=== PATIENT | female | born 1960 | race Two or more races ===

== ENCOUNTER 2023-10-05 08:22 | Inpatient (IN) | payer OTHER ==
[~2023-10-05] VITALS: Ht 172.7 cm; Wt 81.6 kg
[2023-10-05] MEDS ORDERED: LANTUS SOL100 UNIT/1 (08:57)
[2023-10-05] MEDS ORDERED: TENORMIN50 M1 PO (08:59)
[2023-10-05] MEDS ORDERED: LIPITOR80 MG PO (08:59)
[2023-10-05] MEDS ORDERED: INSULIN SYRING1 EA29 SUBCUTANEO (08:59)
[2023-10-05] MEDS ORDERED: NORVASC10 MG PO (09:00)
[2023-10-05] MEDS ORDERED: ZESTRIL30 MG PO (09:00)
[2023-10-05] MEDS ORDERED: CYMBALTA60 MG PO (09:01)
[2023-10-05] MEDS ORDERED: RESTORIL15 M1 PO (09:01)
[2023-10-05] MEDS ORDERED: DOXEPIN HCL150 MG PO (09:02)
[2023-10-05 09:16] LABS: HEMATOCRIT 39.6 % (36.0-45.00); HEMOGLOBIN 13.2 g/dL (12.0-15.00); MEAN CELL VOLUME 87.1 fL (80.00-100.00); MEAN CORPUSCULAR HEMOGLOBIN 29.1 pg (27.00-32.0); MEAN CORPUSCULAR HGB CONC 33.4 g/dl (32.0-36.0); PLATELET COUNT 348 K/uL (150-450); RED BLOOD COUNT 4.55 M/uL (4.00-6.00); RED CELL DISTRIBUTION WIDTH 13.9 % (11.5-14.5)
[2023-10-05 09:27] LABS: URINE APPEARANCE Clear; URINE BILIRRUBIN Negative (NEGATIVE); URINE BLOOD Negative; URINE COLOR Yellow; URINE GLUCOSE Negative (NEGATIVE); URINE LEUKOCYTE Trace; URINE NITRATE Negative; URINE PROTEIN Negative (NEGATIVE); URINE UROBILINOGEN 0.2 E.U./dl
[2023-10-05 09:34] LABS: URINE BACTERIA 1465.2 uL (0.0-1933); URINE EPITHELIAL CELLS 44.3 uL (0.0-38.8); URINE RBC 4.3 uL (0.0-20.8); URINE WBC 7.2 uL (0.0-23.2)
[2023-10-05 09:39] LABS: INR 0.98; PARTIAL THROMBOPLASTIN TIME 26.5 SECONDS (22.0-34.0); PROTHROMBIN TIME 10.3 SECONDS (9.0-11.5)
[2023-10-05 09:45] LABS: ALBUMIN 4.1 gm/dL (3.4-5.0); BILIRUBIN TOTAL 0.34 mg/dL (0.3-1.2); CALCIUM 9.5 mg/dL (8.5-10.1); CREATININE SERUM 0.68 mg/dL (0.55-1.02); GFR 87.11; GLOBULINA 3.6 G/DL (2.4-3.5); POTASSIUM 4.73 mEq/L (3.5-5.1); TOTAL PROTEIN 7.7 gm/dL (6.4-8.2)
[2023-10-12 06:17] LABS: HEMOGLOBIN 12.8 g/dL (12.0-15.00); MEAN CELL VOLUME 86.8 fL (80.00-100.00); MEAN CORPUSCULAR HEMOGLOBIN 28.4 pg (27.00-32.0); MEAN CORPUSCULAR HGB CONC 32.8 g/dl (32.0-36.0); PLATELET COUNT 283 K/uL (150-450); RED BLOOD COUNT 4.49 M/uL (4.00-6.00); RED CELL DISTRIBUTION WIDTH 13.4 % (11.5-14.5)
== END 2023-10-14 18:35 | disposition home or self-care (01) | DRG 743 ==
LOC: O/R 10-11 15:22 → OB/GYN 10-11 15:22 → CIR.AMB 10-12 08:17 → EDSTATUS 10-12 08:20 → OB/GYN 10-12 08:21
PROVIDERS: ADMIT Obstetrics & Gynecology Obstetrics; ATTEND Obstetrics & Gynecology Obstetrics
PROC: 0UT70ZZ Resection of Bilateral Fallopian Tubes, Open Approach (ICD-10-PCS; 2023-10-11)
PROC: 0UT20ZZ Resection of Bilateral Ovaries, Open Approach (ICD-10-PCS; 2023-10-11)
PROC: 0UT90ZZ Resection of Uterus, Open Approach (ICD-10-PCS; principal; 2023-10-11 17:00)
DX: D25.1 Intramural leiomyoma of uterus (principal); N72 Inflammatory disease of cervix uteri; N80.03 Adenomyosis of the uterus; N83.311 Acquired atrophy of right ovary; N83.312 Acquired atrophy of left ovary; Z20.822 Contact with and (suspected) exposure to COVID-19

== ENCOUNTER 2023-10-22 21:11 | Inpatient (IN) | payer OTHER ==
[~2023-10-22] VITALS: Ht 162.6 cm; Wt 73.5 kg
[~2023-10-22 21:11] MED LIST: CYMBALTA60 MG PO; DOXEPIN HCL150 MG PO; INSULIN SYRING1 EA29 SUBCUTANEO; LANTUS SOL100 UNIT/1; LIPITOR80 MG PO; NORVASC10 MG PO; RESTORIL15 M1 PO; TENORMIN50 M1 PO; ZESTRIL30 MG PO
[2023-10-22] MEDS ORDERED: FAMOTIDINE/PF 20 MG in 0.9 % SODIUM CHLORIDE 8 ML IV PUSH STA (21:50)
[2023-10-22] MEDS ORDERED: ONDANSETRON HCL 2 MG/ML VIAL IV ONE (22:00)
[2023-10-22] MEDS ORDERED: 0.9 % SODIUM CHLORIDE 1,000 ML IV SCH (22:00)
[2023-10-22 23:39] LABS: HEMOGLOBIN 12.8 g/dL (12.0-15.00); MEAN CELL VOLUME 86.7 fL (80.00-100.00); MEAN CORPUSCULAR HEMOGLOBIN 28.5 pg (27.00-32.0); MEAN CORPUSCULAR HGB CONC 32.9 g/dl (32.0-36.0); PLATELET COUNT 368 K/uL (150-450); RED CELL DISTRIBUTION WIDTH 13.7 % (11.5-14.5)
[2023-10-22 23:52] LABS: ALBUMIN 3.2 gm/dL (3.4-5.0); BILIRUBIN TOTAL 0.3 mg/dL (0.3-1.2); CALCIUM 9.2 mg/dL (8.5-10.1); CREATININE SERUM 0.87 mg/dL (0.55-1.02); GFR 65.55; GLOBULINA 3.9 G/DL (2.4-3.5); POTASSIUM 4.63 mEq/L (3.5-5.1); TOTAL PROTEIN 7.1 gm/dL (6.4-8.2)
[2023-10-23] MEDS ORDERED: PIPERACILLIN/TAZOBACTAM SODIUM 3.375 GM in 0.9 % SODIUM CHLORIDE 100 ML IV SCH
[2023-10-23] MEDS ORDERED: INSULIN LISPRO 1,000 UNIT/10 ML UNITS SUBCUTANEO PRN (00:15)
[2023-10-23] MEDS ORDERED: KETOROLAC TROMETHAMINE 15 MG VIAL IV ONE (00:15)
[2023-10-23] MEDS ORDERED: MEPERIDINE HCL/PF 25 MG/ML VIAL IM PRN (00:15)
[2023-10-23] MEDS ORDERED: DEXTROSE 50 % IN WATER 0.5 G/ML DISP.SYRIN IV PRN (00:15)
[2023-10-23] MEDS ORDERED: ONDANSETRON HCL 4 MG in 0.9 % SODIUM CHLORIDE 50 ML IV PRN (00:15)
[2023-10-23] MEDS ORDERED: ENALAPRILAT DIHYDRATE 1.25 MG/ML VIAL IV PRN (02:00)
[2023-10-23 02:20] LABS: URINE APPEARANCE Clear; URINE BILIRRUBIN Negative (NEGATIVE); URINE BLOOD Negative; URINE COLOR Yellow; URINE GLUCOSE Negative (NEGATIVE); URINE LEUKOCYTE Negative; URINE NITRATE Negative; URINE PROTEIN Negative (NEGATIVE)
[2023-10-23 02:23] LABS: URINE BACTERIA 177.6 uL (0.0-1933); URINE EPITHELIAL CELLS 6.1 uL (0.0-38.8); URINE RBC 7.1 uL (0.0-20.8); URINE WBC 4.3 uL (0.0-23.2)
[2023-10-23 03:20] LABS: INR 0.96; PARTIAL THROMBOPLASTIN TIME 25.1 SECONDS (22.0-34.0); PROTHROMBIN TIME 10.1 SECONDS (9.0-11.5)
[2023-10-23] MEDS ORDERED: ENOXAPARIN SODIUM 40 MG/0.4 ML SYRINGE SUBCUTANEO SCH (09:00)
[2023-10-23] MEDS ORDERED: FAMOTIDINE/PF 20 MG in 0.9 % SODIUM CHLORIDE 8 ML IV PUSH SCH (09:00)
[2023-10-23 14:35] LABS: CALCIUM 8.7 mg/dL (8.5-10.1); CHOL HDL RATIO 5.4 (0-5.0); CREATININE SERUM 0.75 mg/dL (0.55-1.02); GFR 77.8; POTASSIUM 4.8 mEq/L (3.5-5.1)
[2023-10-23] MEDS ORDERED: AA 4.25%/CAL/LYTES/DEXT 5% 1,000 ML PERIFERAL SCH (17:00)
[2023-10-24 09:36] LABS: HEMATOCRIT 35.2 % (36.0-45.00); HEMOGLOBIN 11.3 g/dL (12.0-15.00); MEAN CELL VOLUME 88.7 fL (80.00-100.00); MEAN CORPUSCULAR HEMOGLOBIN 28.6 pg (27.00-32.0); MEAN CORPUSCULAR HGB CONC 32.2 g/dl (32.0-36.0); PLATELET COUNT 310 K/uL (150-450); RED BLOOD COUNT 3.97 M/uL (4.00-6.00); RED CELL DISTRIBUTION WIDTH 13.5 % (11.5-14.5)
[2023-10-24] MEDS ORDERED: METOCLOPRAMIDE HCL 5 MG/ML VIAL IV SCH (21:00)
[2023-10-25] MEDS ORDERED: BISACODYL 10 MG/SUPP.RECT SUPP.RECT RECTAL SCH (09:00)
[2023-10-26 06:43] LABS: HEMATOCRIT 34.1 % (36.0-45.00); HEMOGLOBIN 11.3 g/dL (12.0-15.00); MEAN CELL VOLUME 86.4 fL (80.00-100.00); MEAN CORPUSCULAR HEMOGLOBIN 28.6 pg (27.00-32.0); MEAN CORPUSCULAR HGB CONC 33.1 g/dl (32.0-36.0); PLATELET COUNT 309 K/uL (150-450); RED BLOOD COUNT 3.95 M/uL (4.00-6.00); RED CELL DISTRIBUTION WIDTH 13.5 % (11.5-14.5)
[2023-10-26 07:22] LABS: BILIRUBIN TOTAL 0.73 mg/dL (0.3-1.2); CALCIUM 8.6 mg/dL (8.5-10.1); CREATININE SERUM 0.55 mg/dL (0.55-1.02); GFR 111.28; GLOBULINA 3.4 G/DL (2.4-3.5); POTASSIUM 3.94 mEq/L (3.5-5.1); TOTAL PROTEIN 6.4 gm/dL (6.4-8.2)
[2023-10-26 11:55] LABS: PLATELET ESTIMATE NORMAL (NORMAL)
[2023-10-26] MEDS ORDERED: ONDANSETRON HCL 2 MG/ML VIAL ONE (14:54)
[2023-10-26] MEDS ORDERED: hydrALAZINE HCL 20 MG VIAL IV PRN (18:00)
[2023-10-27] MEDS ORDERED: LISINOPRIL 10 MG TABLET PO ONE (08:20)
[2023-10-27] MEDS ORDERED: FAMOTIDINE/PF 20 MG/2 ML VIAL ONE (08:20)
[2023-10-27] MEDS ORDERED: AMLODIPINE BESYLATE 10 MG TABLET PO SCH (09:00)
[2023-10-27] MEDS ORDERED: ATENOLOL 50 MG TABLET PO SCH (09:00)
[2023-10-29 06:56] LABS: HEMATOCRIT 34.5 % (36.0-45.00); HEMOGLOBIN 11.4 g/dL (12.0-15.00); MEAN CELL VOLUME 86.9 fL (80.00-100.00); MEAN CORPUSCULAR HEMOGLOBIN 28.7 pg (27.00-32.0); PLATELET COUNT 351 K/uL (150-450); RED BLOOD COUNT 3.96 M/uL (4.00-6.00); RED CELL DISTRIBUTION WIDTH 13.9 % (11.5-14.5)
[2023-10-29] MEDS ORDERED: LISINOPRIL 10 MG TABLET PO ONE ×2 (07:03→07:05)
[2023-10-29 07:21] LABS: CALCIUM 9.2 mg/dL (8.5-10.1); CREATININE SERUM 0.57 mg/dL (0.55-1.02); GFR 106.78; POTASSIUM 4.55 mEq/L (3.5-5.1)
[2023-10-29] MEDS ORDERED: TEMAZEPAM 15 MG CAPSULE PO SCH (21:00)
[2023-10-30] MEDS ORDERED: Duloxetine HCl 60 MG CAPSULE.DR PO SCH (09:00)
[2023-10-31] MEDS ORDERED: LISINOPRIL 10 MG TABLET PO ONE (07:45)
[2023-10-31] MEDS ORDERED: POLYETHYLENE GLYCOL 3350 17 GM BLIST.PACK PO STA (11:32)
[2023-10-31] MEDS ORDERED: POLYETHYLENE GLYCOL 3350 17 GM BLIST.PACK PO SCH (21:00)
[2023-11-01] MEDS ORDERED: LISINOPRIL 10 MG TABLET PO ONE (07:57)
== END 2023-11-02 20:28 | disposition home or self-care (01) | DRG 389 ==
LOC: ER 21:11 → SURH 10-23 00:09
PROVIDERS: General Practice; Internal Medicine; Student in an Organized Health Care Education/Training Program; ADMIT Obstetrics & Gynecology Obstetrics; ATTEND Obstetrics & Gynecology Obstetrics
DX: K56.699 Other intestinal obstruction unspecified as to partial versus complete obstruction (principal); K91.89 Other postprocedural complications and disorders of digestive system; K56.7 Ileus, unspecified; E11.9 Type 2 diabetes mellitus without complications; Z20.822 Contact with and (suspected) exposure to COVID-19; Z90.710 Acquired absence of both cervix and uterus